=== PATIENT | male | born 1945 | race Two or more races ===

== ENCOUNTER 2016-11-30 13:26 | Emergency (ER) | payer OTHER, MEDICAID ==
[~2016-11-30] VITALS: Ht 165.1 cm; Wt 81.6 kg
[2016-11-30] MEDS ORDERED: KETOROLAC TROMETH 60MG/2ML VIAL IM ONE (15:30)
[2016-11-30 16:09] VITALS: BP 114/73
== END 2016-11-30 17:59 | disposition home or self-care (01) ==
LOC: ER 13:27
DX: M46.96 Unspecified inflammatory spondylopathy, lumbar region (principal); M79.1 Myalgia; I25.10 Atherosclerotic heart disease of native coronary artery without angina pectoris; I10 Essential (primary) hypertension; I25.2 Old myocardial infarction
CPT/HCPCS: 72100; 93005; 96372; 99284; J1885